=== PATIENT | female | born 1980 | race Caucasian/White ===

== ENCOUNTER → 2018-02-17 11:17 | Outpatient (CLI) | payer BC, SELFPAY ==
--- NOTE | 2018-02-17 11:30 | RAD_ITS ---
STUDY: X-RAY - THORACIC SPINE REASON FOR EXAM: Female, 37 years old. Cervical disc degeneration TECHNIQUE: 3 view(s) of the thoracic spine were obtained. COMPARISON: None. FINDINGS: Normal kyphosis of the thoracic spine. There is no substantial scoliosis. Normal thoracic vertebrae and endplates. Normal disc space heights. The soft tissue structures are unremarkable. RAD/Thoracic Spine 3 Views IMPRESSION: Normal x-ray examination of the thoracic spine. Electronically Signed: Aolk Sidhu MD at 16:26 EDT , Service support ,
--- NOTE | 2018-02-17 11:30 | RAD_ITS ---
STUDY: X-RAY - CERVICAL SPINE REASON FOR EXAM: Female, 37 years old. Pain in neck TECHNIQUE: 6 view(s) of the cervical spine were obtained. COMPARISON: None FINDINGS: Normal anterior atlantoaxial articulation. Normal odontoid process. There is straightening of the normal cervical lordosis. There is endplate spondylosis of the C5-6 vertebral body. Loss of intervertebral disc height at C5-6. There is osseous foraminal stenosis at C5-6. The soft tissue structures are unremarkable. RAD/Cerv Spine 4 or 5 Views IMPRESSION: Degenerative findings at C5-6 Electronically Signed: Alok Sidhu MD at 16:26 EDT , Service support ,
== END ==
LOC: RAD 11:23
PROVIDERS: Family Provider Internal Medicine; PCP Internal Medicine; Visit Provider Internal Medicine
DX: M50.322 Other cervical disc degeneration at C5-C6 level (principal); M47.892 Other spondylosis, cervical region; M48.02 Spinal stenosis, cervical region
CPT/HCPCS: 72050; 72072

== ENCOUNTER → 2018-10-25 07:25 | Outpatient (CLI) | payer BC, SELFPAY ==
--- NOTE | 2018-10-25 07:27 | BI_ITS ---
MAMMOGRAPHY - BILATERAL SCREENING REASON FOR EXAM: Female, 38 years old. Routine annual screening examination. PERTINENT HISTORY: Grandmother with breast cancer. TECHNIQUE: Digital bilateral breast sapphire (3D mammographic acquisition) in the CC and MLO projections. 2-D mediolateral oblique (MLO) and craniocaudad (CC) views of both breasts were obtained. CAD: Full Field Digital Mammography with Computer Added Detection was performed. COMPARISON: None. Baseline examination. FINDINGS: Breast Composition: The breasts are heterogeneously dense, which may obscure small masses. There is a 5.6 mm x 6.7 mm well-defined nodule in the inferior midportion of the right breast. Correlation with ultrasound is recommended. No other significant abnormalities are identified. BI/SCREENING MAMM (CAD), BILAT IMPRESSION: 5.6 mm x 6.7 mm well-defined nodule in the inferior midportion of the right breast. Correlation with ultrasound is recommended. ASSESSMENT CATEGORY: BIRADS Category 0: Incomplete. Need additional imaging evaluation. A letter regarding these results will be sent to the patient by the facility within 30 days. Approximately 10% of breast cancers are not detected by mammography. A normal mammogram should not delay biopsy of a clinically suspicious abnormality. [id number] Electronically Signed: Luis Felipe Steen, at 8:40 EST , Service support ,
== END ==
PROVIDERS: Family Provider Internal Medicine; PCP Internal Medicine; Referring Provider Internal Medicine; Visit Provider Internal Medicine
DX: Z12.31 Encounter for screening mammogram for malignant neoplasm of breast (principal); N63.10 Unspecified lump in the right breast, unspecified quadrant; Z80.3 Family history of malignant neoplasm of breast
CPT/HCPCS: 77063; 77067

== ENCOUNTER → 2018-10-31 07:56 | Outpatient (CLI) | payer BC, SELFPAY ==
--- NOTE | 2018-10-31 07:59 | US_ITS ---
STUDY: ULTRASOUND BREAST - RIGHT REASON FOR EXAM: Female, 38 years old. Abnormal screening mammogram. TECHNIQUE: Axial and longitudinal images of the RIGHT breast were performed with a high resolution ultrasound transducer. COMPARISON: Comparison is made with prior mammogram dated October 25, 2018. FINDINGS: RIGHT Breast: There is a 7 mm x 8 mm x 3 mm well-defined hypoechoic nodule at the 6:00 position breast at 3 cm from the nipple. This most likely represents a small fibroadenoma. Tissue diagnosis recommended. US/Breast Limited Unilateral IMPRESSION: The mammographic abnormality corresponds to a 7 mm x 8 mm x 2 mm well-defined hypoechoic nodule at the 6:00 position of the breast at 3 cm from the nipple. A biopsy is recommended for further evaluation. ASSESSMENT CATEGORY: BIRADS Category 4: Suspicious - Biopsy Should Be Considered. A letter regarding these results will be sent to the patient by the facility within 30 days. Electronically Signed: Luis Felipe Steen, at 10:49 EST , Service support ,
== END ==
PROVIDERS: Family Provider Internal Medicine; PCP Internal Medicine; Referring Provider Internal Medicine; Visit Provider Internal Medicine
DX: N63.10 Unspecified lump in the right breast, unspecified quadrant (principal)
CPT/HCPCS: 76642

== ENCOUNTER → 2018-11-22 12:16 | Outpatient (CLI) | payer BC, SELFPAY ==
--- NOTE | 2018-11-22 08:30 | ASPS_PTH ---
PATIENT: JOSE MANUEL ZHANG LOC: [facility] U#:[id number] AGE/SX: 45/F ROOM: RE11/22/[address]: Dr. Diomedes Cuevas MD : 1980 BED: DIS: SPEC #: [id number] RECD: 11/22/18 12:15 STATUS: JUDIT SITA #: [id number] SHAVON: 11/22/18 08:[address]: Diomedes Cuevas DEPT: CYTOLOGY RECD BY: Boom Gamez ENTERED: 11/22/18 13:59 SP TYPE: ASPIRATION OTHR DR: Dr. Walter Sage MD Tissues: Right breast, NOS Procedures: Special Stain Group II Cytology Other HEADER OPERATION: Ultrasound-guided right breast mass aspiration PRE-OP DIAGNOSIS: Right breast mass TISSUE SUBMITTED: Right breast mass aspirate slides x4 DIAGNOSIS CYTOLOGY Right breast mass, ultrasound-guided fine needle aspiration (smears): Amorphous acellular, proteinaceous debris. AM:makenzie 11/23/18 COMMENT Clinical correlation is suggested. CYTOLOGY STUDY Slides are reviewed. CYTOLOGY GROSS Received are four smears labeled with the patient's name and designated per the requisition as right breast mass. Submitted for staining. 11/22/18 TC:5 CPT: 24978
== END ==
PROVIDERS: Family Provider Internal Medicine; PCP Internal Medicine; Referring Provider Surgery; Visit Provider Surgery
DX: N63.10 Unspecified lump in the right breast, unspecified quadrant (principal)
CPT/HCPCS: 88161; 88313

== ENCOUNTER → 2019-10-23 08:04 | Outpatient (CLI) | payer BC, SELFPAY ==
[2019-10-23 08:49] LABS: Absolute Lymphocyte Count 3.41 X10^3/uL (0.83-4.51); Absolute Neutrophil Count 6.3 X10^3/uL (2.0-7.7); Basophil# 0.12 X10^3/uL; Basophil% 1.1 % (0-1); Eosinophil# 0.16 X10^3/uL; Eosinophils% 1.5 % (0-5); Hemoglobin 10.5 g/dL (12.0-15.0); Lymphocyte # 3.41 X10^3/ul (4.0); Mean Corp Hgb Conc 29.2 g/dL (32-36); Mean Corpuscular Hgb 24.3 pg (27.0-32.0); Mean Corpuscular Volume 83.3 fL (81-99); Mean Platelet Vol. 9.5 fl (6.2-12.0); Monocyte% 6.6 % (0-10); NRBC Flagged by Analyzer 0 % (0-5); Neutrophil # 6.25 X10^3/uL (2.7-7.7); Neutrophil % 58.5 % (47-70); Platelet Count 318 K/mm3 (150-450); RBC Distribution Width CV 16.5 % (11.6-14.6); RBC Distribution Width SD 50.5 fl (35.1-43.9); Red Blood Count 4.32 M/mm3 (4.2-5.4); White Blood Count 10.7 K/mm3 (4.4-11.0)
[2019-10-23 09:09] LABS: Iron 22 ug/dL (50-170); Iron Binding Capacity,Total 450 ug/dL (250-450); PERCENT IRON SATURATION 4.9 % (15.0-55.0)
== END ==
PROVIDERS: PCP Internal Medicine; Referring Provider Internal Medicine; Visit Provider Internal Medicine
DX: D50.9 Iron deficiency anemia, unspecified (principal)
CPT/HCPCS: 36415; 83540; 83550; 85025